=== PATIENT | female | born 1950 | race Caucasian/White ===

== ENCOUNTER 2019-06-13 11:40 | Inpatient (IN) | payer BC ==
[~2019-06-13] VITALS: Ht 157.5 cm; Wt 92.7 kg
--- NOTE | 2019-06-13 11:41 | NUR ---
PATIENT ARRIVES WITH GROUND TRANSPORT CARE FLIGHT FROM [facility] WITH A OSTOMY COLOSTOMY, ABDOMINAL PAIN, N/V AND COUGH. SHE HAS HAD A LOBECTOMY AND LUNG CANCER HISTORY. PATIENT ON MONITOR, AND ROOM AIR SAT'S 96%. ON MONITOR, RAILS UP.
[2019-06-13] MEDS ORDERED: DOCU-131 PO (11:59)
[2019-06-13] MEDS ORDERED: LACT1CAP3 PO (11:59)
[2019-06-13] MEDS ORDERED: GABA300C10 PO (11:59)
[2019-06-13] MEDS ORDERED: FERR324T5 PO (11:59)
[2019-06-13] MEDS ORDERED: CHOL40002 PO (11:59)
[2019-06-13] MEDS ORDERED: CARV3.122 PO (11:59)
[2019-06-13] MEDS ORDERED: [UNRECOGNIZED DRUG - CODE] TP (11:59)
[2019-06-13] MEDS ORDERED: SODIUM CHLORIDE FLUSH 10ML SYR IVF ONE (12:00)
[2019-06-13] MEDS: LACTATED RINGERS 1,000 ML IV SCH ×2 (12:16→21:09)
--- NOTE | 2019-06-13 12:17 | NUR ---
BREAK RN: RPT REC'D FROM [facility]. PIV EST AND LABS DRAWN, IVF INFUSING NOTED. PT TOLLERATED WELL. VSS, CALL LIGHT W/I REACH
[2019-06-13 12:22] LABS: MEAN CORPUSCULAR HEMOGLOBIN 28.6 pg (27.0-34.8); MEAN CORPUSCULAR HGB CONC 33.2 g/dL (32.4-35.8); MEAN CORPUSCULAR VOLUME 86.3 fL (80-100); MEAN PLATELET VOLUME 7.9 fL (7.4-10.4); PLATELET COUNT 341 x10^3/uL (130-400); RED BLOOD COUNT 5.12 x10^6/uL (3.82-5.3); RED CELL DISTRIBUTION WIDTH 14.4 % (9.6-15.2)
[2019-06-13 12:35] LABS: ALANINE AMINOTRANSFERASE 14 U/L (12-78); ALBUMIN 3.7 g/dL (3.4-5.0); ANION GAP 10 mmol/L (5-15); CALCIUM 10.2 mg/dL (8.5-10.1); CHLORIDE 100 mmol/L (98-107); CREATININE 2.07 mg/dL (0.55-1.02)
[2019-06-13 12:37] LABS: ALKALINE PHOSPHATASE 107 U/L (45-117); BILIRUBIN,TOTAL 0.7 mg/dL (0.2-1.0); TOTAL PROTEIN 8.5 g/dL (6.4-8.2)
[2019-06-13 12:39] LABS: MD YES
[2019-06-13 12:40] LABS: BAND#(MANUAL) 1.22 x10^3/uL; BANDS%(MANUAL) 11 % (0-7); EOS#(MANUAL) 0.11 x10^3/uL (0.0-0.4); EOS% (MANUAL) 1 % (1-7); LYMPH#(MANUAL) 1.78 x10^3/uL (1-3.4); LYMPHS% (MANUAL) 16 % (22-44); MONOS#(MANUAL) 0.89 x10^3/uL (0.3-2.7); MONOS% (MANUAL) 8 % (2-9); SEGS% (MANUAL) 64 % (42-75)
[2019-06-13 12:41] LABS: <PLATELET ESTIMATE> ADEQUATE; <PLT MORPHOLOGY> NORMAL PLT MORPH; <RBC MORPHOLOGY> NORMAL
[2019-06-13] MEDS ORDERED: TORS20TA2 PO (12:45)
[2019-06-13] MEDS ORDERED: SIME80TA15 PO (12:45)
[2019-06-13] MEDS ORDERED: ROSU20TA2 PO (12:45)
[2019-06-13] MEDS ORDERED: CYCL7.5T25 PO (12:45)
[2019-06-13] MEDS ORDERED: HYDR-36 PO (12:45)
[2019-06-13] MEDS ORDERED: LEVO150T5 PO (12:45)
[2019-06-13] MEDS ORDERED: NATE120T2 PO (12:45)
[2019-06-13] MEDS ORDERED: POTA20PA25 PO (12:45)
--- NOTE | 2019-06-13 12:53 | NUR ---
STRAIGHT CATH'D PATIENT AND NOW SHE IS OFF TO CT SCAN, NO CONTRAST SECONDARY TO RENAL FXN, AWARE
--- NOTE | 2019-06-13 13:03 | NUR ---
PATIENT IS IN CT SCAN
[2019-06-13 13:30] LABS: CULTURE INDICATED? YES; MICROSCOPIC INDICATED
[2019-06-13] MEDS ORDERED: LORazepam 2 MG/ML, 1ML ONE (14:12)
--- NOTE | 2019-06-13 14:15 | NUR ---
patient apprehensive anxious about ng tube. got order for ativan and lidocaine jelly, requested ladder from pharmacy
[2019-06-13] MEDS ORDERED: LORazepam 2 MG/ML, 1ML IVPush ONE (14:30)
[2019-06-13] MEDS ORDERED: LIDOCAINE JELLY 2%, 30GM TP ONE (14:30)
--- NOTE | 2019-06-13 14:52 | NUR ---
used lidocaine jelly. patient very challenging to start ng tube as she has a low threshold for pain and is not tolerating procedure well. gave ativan and lidocaine, and allowed time for efficacy. patient fights with hands the minute that ng tube inserted. tried to oscultate placement and not heard well, although patient has zero respiratory complications and tube advanced to optimal measured position. secured it and will talk to md about xray placement.
[2019-06-13] MEDS ORDERED: DEXTROSE 4 GM TAB.CHEW PO PRN (15:00)
[2019-06-13] MEDS ORDERED: ONDANSETRON ODT 4 MG PO PRN (15:00)
[2019-06-13] MEDS ORDERED: DEXTROSE 50%, 50ML SYRINGE IVPush PRN (15:00)
[2019-06-13] MEDS ORDERED: GLUCAGON 1 MG IM PRN (15:00)
[2019-06-13] MEDS ORDERED: ONDANSETRON 2MG/ML, 2ML IVPush PRN (15:00)
[2019-06-13] MEDS ORDERED: hydrALAzine 20 MG/ML, 1ML IVPush PRN (15:00)
[2019-06-13] MEDS ORDERED: ACETAMINOPHEN 325 MG TABLET PO PRN (15:00)
--- NOTE | 2019-06-13 15:15 | NUR ---
patient report given to Shonna. patient getting xray and then will go upstairs.
[2019-06-13] MEDS: INSULIN LISPRO 100 UNITS/ML, PEN SQ-INSULIN SCH ×2 (16:00→22:35)
[2019-06-13 17:30] VITALS: BP 130/70
[2019-06-13 18:44] VITALS: BP 108/62
[2019-06-13] MEDS: SODIUM CHLORIDE 0.9% 1,000 ML IV SCH (19:25)
[2019-06-13] MEDS: morphine SULFATE 10 MG/ML, 1ML IVPush PRN (21:07)
[2019-06-13] MEDS: SODIUM CHLORIDE FLUSH 10ML SYR IVF SCH (21:09)
[2019-06-13] MEDS: CARVEDILOL 3.125 MG TABLET PO SCH (22:21)
[2019-06-13] MEDS: OXYcodone IR 5MG TABLET PO PRN (22:21)
[2019-06-14] MEDS: morphine SULFATE 10 MG/ML, 1ML IVPush PRN ×6 (00:07→22:44)
[2019-06-14 00:12] VITALS: BP 105/66
[2019-06-14] MEDS: SODIUM CHLORIDE 0.9% 1,000 ML IV SCH (04:31)
[2019-06-14 05:14] LABS: BASOPHILS # (AUTO) 0.03 x10^3/uL (0-0.1); BASOPHILS % (AUTO) 0 % (0-1); EOSINOPHILS # (AUTO) 0.11 x10^3/uL (0-0.4); EOSINOPHILS % (AUTO) 1 % (1-7); LYMPHOCYTES # (AUTO) 2.29 x10^3/uL (1-3.4); LYMPHOCYTES % (AUTO) 27 % (22-44); MD NO; MEAN CORPUSCULAR HEMOGLOBIN 28.7 pg (27.0-34.8); MEAN CORPUSCULAR HGB CONC 32.8 g/dL (32.4-35.8); MEAN CORPUSCULAR VOLUME 87.6 fL (80-100); MEAN PLATELET VOLUME 7.9 fL (7.4-10.4); MONOCYTES # (AUTO) 0.76 x10^3/uL (0.2-0.8); MONOCYTES % (AUTO) 9 % (2-9); NEUTROPHILS # (AUTO) 5.38 x10^3/uL (1.8-6.8); NEUTROPHILS % (AUTO) 63 % (42-75); PLATELET COUNT 291 x10^3/uL (130-400); RED BLOOD COUNT 4.58 x10^6/uL (3.82-5.3); RED CELL DISTRIBUTION WIDTH 14.4 % (9.6-15.2)
[2019-06-14 05:21] LABS: ANION GAP 8 mmol/L (5-15); CALCIUM 9.2 mg/dL (8.5-10.1); CHLORIDE 103 mmol/L (98-107); CREATININE 1.69 mg/dL (0.55-1.02)
[2019-06-14] MEDS ORDERED: SODIUM CHLORIDE 0.9%, 250ML IVBOLUS ONE (05:30)
[2019-06-14] MEDS: OXYcodone IR 5MG TABLET PO PRN (06:37)
[2019-06-14] MEDS: LEVOTHYROXINE 150 MCG TABLET PO SCH (06:38)
[2019-06-14] MEDS ORDERED: POTASSIUM CHLORIDE 20 MEQ in SODIUM CHLORIDE 0.9% 250 ML IV ONE (07:00)
[2019-06-14] MEDS: INSULIN LISPRO 100 UNITS/ML, PEN SQ-INSULIN SCH ×2 (07:00→11:00)
[2019-06-14 08:40] VITALS: BP 110/72
[2019-06-14] MEDS: SODIUM CHLORIDE FLUSH 10ML SYR IVF SCH (09:00)
[2019-06-14] MEDS: CARVEDILOL 3.125 MG TABLET PO SCH (09:00)
[2019-06-14] MEDS: GABAPENTIN 300 MG CAPSULE PO SCH (09:00)
[2019-06-14] MEDS: CEFTRIAXONE PMX 1GM/50ML 50 ML IV SCH ×2 (10:06→22:45)
[2019-06-14 12:41] VITALS: BP 97/64
[2019-06-14] MEDS: D5%-0.45NACL+KCL 20MEQ 1,000 ML IV SCH (12:49)
[2019-06-14] MEDS ORDERED: BENZOCAINE AEROSOL SPRAY 20%, 60ML TP PRN (16:30)
[2019-06-14] MEDS ORDERED: BENZOCAINE 20% SPRAY 0.5ML TP PRN (17:34)
[2019-06-14 18:22] VITALS: BP 120/70
[2019-06-15] MEDS: D5%-0.45NACL+KCL 20MEQ 1,000 ML IV SCH ×2 (00:20→08:36)
[2019-06-15] MEDS: morphine SULFATE 10 MG/ML, 1ML IVPush PRN ×4 (01:38→14:29)
[2019-06-15 02:50] VITALS: BP 148/80
[2019-06-15 05:19] LABS: ALBUMIN 2.6 g/dL (3.4-5.0); ANION GAP 5 mmol/L (5-15); CALCIUM 8.3 mg/dL (8.5-10.1); CHLORIDE 109 mmol/L (98-107)
[2019-06-15 05:20] LABS: CREATININE 1.05 mg/dL (0.55-1.02)
[2019-06-15] MEDS: LEVOTHYROXINE 150 MCG TABLET PO SCH (05:46)
[2019-06-15 06:46] LABS: BASOPHILS # (AUTO) 0.01 x10^3/uL (0-0.1); BASOPHILS % (AUTO) 0 % (0-1); EOSINOPHILS # (AUTO) 0.11 x10^3/uL (0-0.4); EOSINOPHILS % (AUTO) 1 % (1-7); LYMPHOCYTES # (AUTO) 1.71 x10^3/uL (1-3.4); LYMPHOCYTES % (AUTO) 19 % (22-44); MD SCAN; MEAN CORPUSCULAR HEMOGLOBIN 28.7 pg (27.0-34.8); MEAN CORPUSCULAR HGB CONC 33.2 g/dL (32.4-35.8); MEAN CORPUSCULAR VOLUME 86.3 fL (80-100); MEAN PLATELET VOLUME 8.1 fL (7.4-10.4); MONOCYTES # (AUTO) 0.66 x10^3/uL (0.2-0.8); MONOCYTES % (AUTO) 8 % (2-9); NEUTROPHILS # (AUTO) 6.32 x10^3/uL (1.8-6.8); NEUTROPHILS % (AUTO) 72 % (42-75); PLATELET COUNT 222 x10^3/uL (130-400); RED BLOOD COUNT 4.29 x10^6/uL (3.82-5.3); RED CELL DISTRIBUTION WIDTH 14.1 % (9.6-15.2)
[2019-06-15] MEDS: GABAPENTIN 300 MG CAPSULE PO SCH (08:36)
[2019-06-15] MEDS: CARVEDILOL 3.125 MG TABLET PO SCH (08:36)
[2019-06-15 08:40] VITALS: BP 134/87
[2019-06-15] MEDS: OXYcodone IR 5MG TABLET PO PRN ×3 (08:52→22:26)
[2019-06-15] MEDS ORDERED: POTASSIUM PHOSPHATE 22 MEQ in SODIUM CHLORIDE 0.9% 500 ML IV ONE (10:30)
[2019-06-15] MEDS: HEPARIN 5,000 UNITS/ML, 1ML SQ SCH ×2 (10:30→20:21)
[2019-06-15] MEDS: CEFTRIAXONE PMX 1GM/50ML 50 ML IV SCH ×2 (10:58→22:26)
[2019-06-15 12:50] VITALS: BP 132/75
[2019-06-15] MEDS ORDERED: OMNIPAQUE 350 MG/ML, 150 ML BOTTLE ONE (14:08)
[2019-06-15 20:09] VITALS: BP 121/71
[2019-06-15] MEDS: D5%-0.45% NACL 1,000 ML IV SCH (22:29)
[2019-06-16 02:08] VITALS: BP 134/77
[2019-06-16 04:37] LABS: BASOPHILS # (AUTO) 0.03 x10^3/uL (0-0.1); BASOPHILS % (AUTO) 0 % (0-1); EOSINOPHILS # (AUTO) 0.21 x10^3/uL (0-0.4); EOSINOPHILS % (AUTO) 2 % (1-7); LYMPHOCYTES # (AUTO) 1.91 x10^3/uL (1-3.4); LYMPHOCYTES % (AUTO) 21 % (22-44); MD NO; MEAN CORPUSCULAR HEMOGLOBIN 28.5 pg (27.0-34.8); MEAN CORPUSCULAR HGB CONC 32.9 g/dL (32.4-35.8); MEAN CORPUSCULAR VOLUME 86.5 fL (80-100); MONOCYTES # (AUTO) 0.68 x10^3/uL (0.2-0.8); MONOCYTES % (AUTO) 8 % (2-9); NEUTROPHILS # (AUTO) 6.19 x10^3/uL (1.8-6.8); NEUTROPHILS % (AUTO) 69 % (42-75); PLATELET COUNT 233 x10^3/uL (130-400); RED BLOOD COUNT 4.49 x10^6/uL (3.82-5.3); RED CELL DISTRIBUTION WIDTH 14.1 % (9.6-15.2)
[2019-06-16 04:43] LABS: ALANINE AMINOTRANSFERASE 8 U/L (12-78); ALBUMIN 2.7 g/dL (3.4-5.0); ANION GAP 4 mmol/L (5-15); CALCIUM 8.6 mg/dL (8.5-10.1); CHLORIDE 109 mmol/L (98-107); CREATININE 1.06 mg/dL (0.55-1.02)
[2019-06-16 04:45] LABS: ALKALINE PHOSPHATASE 79 U/L (45-117); BILIRUBIN,TOTAL 0.4 mg/dL (0.2-1.0); TOTAL PROTEIN 6.8 g/dL (6.4-8.2)
[2019-06-16] MEDS: HEPARIN 5,000 UNITS/ML, 1ML SQ SCH ×3 (05:12→19:53)
[2019-06-16] MEDS: LEVOTHYROXINE 150 MCG TABLET PO SCH (05:13)
[2019-06-16] MEDS: OXYcodone IR 5MG TABLET PO PRN ×3 (06:34→19:54)
[2019-06-16] MEDS: CARVEDILOL 3.125 MG TABLET PO SCH (08:25)
[2019-06-16] MEDS: GABAPENTIN 300 MG CAPSULE PO SCH (08:25)
[2019-06-16 09:09] VITALS: BP 119/79
[2019-06-16] MEDS: D5%-0.45% NACL 1,000 ML IV SCH ×2 (09:50→19:54)
[2019-06-16] MEDS: CEFTRIAXONE PMX 1GM/50ML 50 ML IV SCH ×2 (09:50→22:20)
[2019-06-16] MEDS: morphine SULFATE 10 MG/ML, 1ML IVPush PRN (10:05)
[2019-06-16 12:18] VITALS: BP 117/76
[2019-06-16] MEDS: BACLOFEN 10 MG TABLET PO PRN (17:37)
[2019-06-16 19:36] VITALS: BP 123/78
[2019-06-17 00:38] VITALS: BP 107/71
[2019-06-17] MEDS: OXYcodone IR 5MG TABLET PO PRN ×2 (00:40→08:17)
[2019-06-17] MEDS: HEPARIN 5,000 UNITS/ML, 1ML SQ SCH ×2 (03:08→11:51)
[2019-06-17] MEDS: BACLOFEN 10 MG TABLET PO PRN (03:09)
[2019-06-17] MEDS: LEVOTHYROXINE 150 MCG TABLET PO SCH (04:33)
[2019-06-17] MEDS: D5%-0.45% NACL 1,000 ML IV SCH (04:34)
[2019-06-17 04:49] LABS: BASOPHILS # (AUTO) 0.03 x10^3/uL (0-0.1); BASOPHILS % (AUTO) 0 % (0-1); EOSINOPHILS # (AUTO) 0.31 x10^3/uL (0-0.4); EOSINOPHILS % (AUTO) 3 % (1-7); LYMPHOCYTES # (AUTO) 1.83 x10^3/uL (1-3.4); LYMPHOCYTES % (AUTO) 20 % (22-44); MD NO; MEAN CORPUSCULAR HEMOGLOBIN 28.5 pg (27.0-34.8); MEAN CORPUSCULAR HGB CONC 32.8 g/dL (32.4-35.8); MEAN CORPUSCULAR VOLUME 86.8 fL (80-100); MEAN PLATELET VOLUME 8.2 fL (7.4-10.4); MONOCYTES # (AUTO) 0.76 x10^3/uL (0.2-0.8); MONOCYTES % (AUTO) 8 % (2-9); NEUTROPHILS # (AUTO) 6.16 x10^3/uL (1.8-6.8); NEUTROPHILS % (AUTO) 68 % (42-75); PLATELET COUNT 220 x10^3/uL (130-400); RED BLOOD COUNT 4.32 x10^6/uL (3.82-5.3); RED CELL DISTRIBUTION WIDTH 14.7 % (9.6-15.2)
[2019-06-17 05:00] LABS: CHLORIDE 108 mmol/L (98-107)
[2019-06-17 05:14] LABS: ALANINE AMINOTRANSFERASE 7 U/L (12-78); ALBUMIN 2.7 g/dL (3.4-5.0); ALKALINE PHOSPHATASE 78 U/L (45-117); ANION GAP 7 mmol/L (5-15); BILIRUBIN,TOTAL 0.4 mg/dL (0.2-1.0); CALCIUM 8.6 mg/dL (8.5-10.1); TOTAL PROTEIN 6.8 g/dL (6.4-8.2)
[2019-06-17 07:53] VITALS: BP 140/63
[2019-06-17] MEDS: GABAPENTIN 300 MG CAPSULE PO SCH (08:16)
[2019-06-17] MEDS: CARVEDILOL 3.125 MG TABLET PO SCH (08:16)
[2019-06-17] MEDS ORDERED: TORSEMIDE 20 MG TABLET PO SCH (10:00)
[2019-06-17] MEDS: CEFTRIAXONE PMX 1GM/50ML 50 ML IV SCH (10:36)
[2019-06-17 14:22] VITALS: BP 117/76
[2019-06-17] MEDS ORDERED: CEPH-368 PO (15:18)
== END 2019-06-17 19:18 | disposition home or self-care (01) | DRG 388 ==
LOC: ED 14:01 → SUATTDRO 14:25 → EDIP 14:35 → 4NW 15:33
PROVIDERS: ADMIT Hospitalist; ATTEND Internal Medicine
PROC: 0T9B70Z Drainage of Bladder with Drainage Device, Via Natural or Artificial Opening (ICD-10-PCS; principal; 2019-06-13)
PROC: 0D9670Z Drainage of Stomach with Drainage Device, Via Natural or Artificial Opening (ICD-10-PCS; 2019-06-13)
DX: K56.600 Partial intestinal obstruction, unspecified as to cause (principal); N17.0 Acute kidney failure with tubular necrosis; N39.0 Urinary tract infection, site not specified; E66.9 Obesity, unspecified; E11.9 Type 2 diabetes mellitus without complications; E03.9 Hypothyroidism, unspecified; B96.20 Unspecified Escherichia coli [E. coli] as the cause of diseases classified elsewhere; E83.39 Other disorders of phosphorus metabolism; E78.5 Hyperlipidemia, unspecified; E83.52 Hypercalcemia; R00.0 Tachycardia, unspecified; E86.0 Dehydration; I10 Essential (primary) hypertension; K76.89 Other specified diseases of liver; Z85.118 Personal history of other malignant neoplasm of bronchus and lung; Z85.72 Personal history of non-Hodgkin lymphomas; Z90.49 Acquired absence of other specified parts of digestive tract; Z93.3 Colostomy status; Z95.828 Presence of other vascular implants and grafts; Z88.0 Allergy status to penicillin; Z68.37 Body mass index [BMI] 37.0-37.9, adult
CPT/HCPCS: 36415; 74018; 74176; 74250; 80048; 80053; 80069; 81001; 82962; 83036; 83690; 83735; 84100; 85025; 87077; 87086; 87186; 93005; 96374; 99285; G0378; J0696; J1644; J2405; J3480; Q9967; J2060; J2270; J7030; J7040; J7050; J7120